=== PATIENT | female | born 2000 | race Caucasian/White ===

== ENCOUNTER → 2019-09-02 14:22 | Outpatient (BNVA) | payer BC, SELFPAY | PROVIDERS: Family Provider Nurse Practitioner Family; PCP Nurse Practitioner Family; Visit Provider Internal Medicine Rheumatology | DX: M79.10 Myalgia, unspecified site (principal); Z79.899 Other long term (current) drug therapy; R53.83 Other fatigue; R80.9 Proteinuria, unspecified; N92.1 Excessive and frequent menstruation with irregular cycle; E55.9 Vitamin D deficiency, unspecified; R76.8 Other specified abnormal immunological findings in serum | CPT/HCPCS: 80076; 81001; 82306; 82565; 82570; 84156; 84439; 84443; 85025; 85651; 86140; 86160; 99204 ==

== ENCOUNTER → 2019-09-07 11:17 | Outpatient (BNVA) | payer BC, SELFPAY | PROVIDERS: Family Provider Nurse Practitioner Family; PCP Nurse Practitioner Family; Visit Provider Registered Nurse | DX: J02.9 Acute pharyngitis, unspecified (principal); Z20.828 Contact with and (suspected) exposure to other viral communicable diseases; R53.83 Other fatigue | CPT/HCPCS: 87635; 87880 ==

== ENCOUNTER → 2019-09-23 09:05 | Outpatient (BNVA) | payer BC, SELFPAY | PROVIDERS: Family Provider Nurse Practitioner Family; PCP Nurse Practitioner Family; Visit Provider Internal Medicine Rheumatology | DX: R76.8 Other specified abnormal immunological findings in serum (principal); R53.82 Chronic fatigue, unspecified; M79.7 Fibromyalgia; G47.9 Sleep disorder, unspecified; N92.1 Excessive and frequent menstruation with irregular cycle; E55.9 Vitamin D deficiency, unspecified | CPT/HCPCS: 99214 ==

== ENCOUNTER → 2020-01-22 15:08 | Outpatient (BNVA) | payer BC, SELFPAY | PROVIDERS: Family Provider Nurse Practitioner Family; PCP Nurse Practitioner Family; Visit Provider Obstetrics & Gynecology | DX: R10.2 Pelvic and perineal pain (principal); G89.29 Other chronic pain; N93.9 Abnormal uterine and vaginal bleeding, unspecified | CPT/HCPCS: 83001; 84146; 84443; 85025 ==

== ENCOUNTER → 2020-01-29 16:14 | Outpatient (BNVA) | payer BC, SELFPAY | PROVIDERS: Family Provider Nurse Practitioner Family; PCP Nurse Practitioner Family; Visit Provider Obstetrics & Gynecology | DX: N93.9 Abnormal uterine and vaginal bleeding, unspecified (principal); N83.8 Other noninflammatory disorders of ovary, fallopian tube and broad ligament | CPT/HCPCS: 76830 ==

== ENCOUNTER → 2021-09-06 10:12 | Outpatient (BNVA) | payer BC, SELFPAY | PROVIDERS: Family Provider Nurse Practitioner Family; PCP Registered Nurse; Visit Provider Registered Nurse | DX: R51.9 Headache, unspecified (principal) | CPT/HCPCS: 80053; 82607; 84443; 85025 ==

== ENCOUNTER → 2022-05-23 09:40 | Outpatient (BNVA) | payer BC, SELFPAY | PROVIDERS: Family Provider Nurse Practitioner Family; PCP Registered Nurse; Visit Provider Obstetrics & Gynecology | DX: Z32.00 Encounter for pregnancy test, result unknown (principal) | CPT/HCPCS: 84702 ==

== ENCOUNTER 2022-05-25 09:41 | Emergency (ER) | payer BC, SELFPAY ==
[2022-05-25 09:47] VITALS: BP 106/72; PULSE 75; RESP 16; TEMP 36.6; O2SAT 99; BMI 27.0
[2022-05-25 10:26] LABS: Basophils # 0.1 10^3/uL (0.0-0.1); Basophils % 0.8 %; Eosinophils # 0.3 10^3/uL (0.0-0.8); Eosinophils % 3.4 %; Hematocrit 40.5 % (37.0-47.0); Hemoglobin 13.1 g/dL (11.5-15.3); Lymphocytes # 1.5 10^3/uL (0.8-4.8); Mean Corpuscular HGB Conc 32.3 g/dL (30.0-36.0); Mean Corpuscular Hemoglobin 27.9 pg (28.0-34.0); Mean Corpuscular Volume 86.4 fl (81-99); Mean Platelet Volume 11.5 fL (7.4-10.4); Monocytes # 0.7 10^3/uL (0.2-0.9); Monocytes % 8.3 %; Neutrophils # 5.45 10^3/uL (1.8-7.7); Nucleated Red Blood Cells % 0 %; Platelet Count 234 10^3/cmm (130-400); Red Blood Count 4.69 10^6/uL (4.1-5.3); Red Cell Distribution Width 13.2 % (12.1-15.1)
[2022-05-25] MEDS: ondansetron 2 mg/ML SDV 2 mL 4 MG IVP (10:35)
[2022-05-25] MEDS: sodium chloride 0.9% 1,000 ML 999 ML IV ×2 (10:35→10:43)
[2022-05-25 10:42] LABS: Alanine Aminotransferase 13 U/L (0-33); Albumin Level 4.5 g/dL (3.5-5.2); Alkaline Phosphatase 69 U/L (35-105); Anion Gap 15.3 (5-19); Aspartate Amino Transferase 16 U/L (0-32); Blood Urea Nitrogen 10 mg/dL (6-20); Calcium 8.9 mg/dL (8.5-10.5); Carbon Dioxide 24 mmol/L (22-29); Chloride 102 mmol/L (98-107); Globulin 2.3 g/dL (1.3-4.6); Glomerular Filtration Rate 154.3 mL/min (90-130); Glucose 101 mg/dL (65-115); Lipase 29 U/L (13-60); Magnesium 2.1 mg/dL (1.7-2.3); Osmolality Calculated 283 mOsm/kg (285-295); Potassium 4.3 mmol/L (3.5-5.1); Sodium 137 mmol/L (136-145); Total Bilirubin 0.3 mg/dL (0.15-1.2); Total Protein 6.8 g/dL (6.6-8.7)
[2022-05-25 10:47] VITALS: BP 127/72; PULSE 77; RESP 17; O2SAT 100
[2022-05-25 11:01] VITALS: BP 105/66; PULSE 81; RESP 17; O2SAT 99
--- NOTE | 2022-05-25 11:05 | W.ED.NAVMDI ---
HPI - Nausea/Vomiting/Diarrhea General: Chief complaint: Nausea/Vomiting/Diarrhea Stated complaint: n/v Time Seen by Provider: 05/25/22 09:57 Source: patient Mode of arrival: ambulatory History of Present Illness: 21-year-old female presents emergency room complaining of dizziness lightheadedness nausea and vomiting. She had bilious vomit 8-9 times this morning no hematochezia melena hematemesis or coffee-ground emesis. Her gait has been normal so no vision changes. No dysuria urgency or frequency. She is feeling somewhat better now than she was earlier. She is responded well to the antiemetics given when she first arrived here. She not previously had episodes like this denies fever. MD elicited complaint: nausea and vomiting Onset (ago): hour(s) Description of vomiting: watery and bilious Associated nausea: Yes Associated abdominal pain: Yes Location of pain: Epigastric and RUQ Pain consistency: intermittent Severity: moderate Quality: cramping Exacerbating factors: none Relieving factors: none Associated symtoms: Reports bloating, anorexia and nausea; Denies altered mental status, anxiety, change in vision, chest pain, cough, diaphoresis, decreased urine output, dizziness, dysuria, epistaxis, fatigue, fecal incontinence, fevers/chills, headache(s), malaise, myalgias, numbness, palpitations, rash, short of breath, syncope, tenesmus, tinnitus or weakness Review of Systems Const: Denies: fever(s), chills, fatigue, malaise or diaphoresis Eyes: Denies: change in vision ENMT: Denies: tinnitus or epistaxis Card: Denies: chest pain, palpitations or syncope Resp: Denies: dyspnea, productive cough or non-productive cough GI: Reports: nausea and bloating; Denies: abdominal pain or fecal incontinence : Denies: flank pain, difficulty voiding or dysuria Skin/Breast: Denies: rash or pruritus Neuro: Denies: headache(s) or dizziness Psych: Denies: anxiety PFSH ED PFSH: Medical History (Updated 05/25/22 @ 12:31 by Daniel Abreu DO) Fatigue Fibromyalgia Immunization counseling Myalgia Positive KWAME (antinuclear antibody) Primary sleep disturbance Proteinuria Surgical History No pertinent past surgical history Family History Father CAD (coronary artery disease) Hyperlipidemia Hypertension Family/Other Diabetes maternal great aunt and great uncles Denies family history of Rheumatoid arthritis Colon cancer Ovarian cancer Lupus Breast cancer Anesthesia complication Uterine cancer Thyroid condition Stroke Social History Smoking and tobacco status: never smoked Alcohol intake: never Adopted: No Caregiver/support person: No Lives independently: No Household members: significant other service: No Current occupational status: employed Sexually active: Yes Current gender identity: Female Female Reproductive History: Date of last menstrual period: 04/10/22 Physical Exam Const: EXAM LIMITATIONS: no altered mental status GENERAL APPEARANCE: cooperative and comfortable ORIENTATION/CONSCIOUSNESS: Yes awake, Yes oriented to person, Yes oriented to place and Yes oriented to time HENMT: COMMON NORMALS: normocephalic, atraumatic, hearing grossly normal bilaterally, external ears normal, EAC's normal, TM's normal bilaterally, Normal nasal mucous membranes and turbinates present, moist oral mucous membranes and oropharynx normal HEAD & SCALP: normocephalic and atraumatic NOSE: Normal nasal mucous membranes and turbinates present EXTERNAL EAR: Yes external ears normal EXTERNAL AUDITORY CANAL: EAC's normal TYMPANIC MEMBRANE: TM's normal bilaterally Eye: COMMON NORMALS: Equal, round and reactive pupils present, EOMs intact bilaterally, conjunctivae normal and no scleral icterus CONJUNCTIVA: Yes conjunctivae normal PUPIL: Yes Equal, round and reactive pupils present Neck/C-Spine: COMMON NORMALS: full ROM, no lymphadenopathy, supple and no JVD Lymph: LYMPHATIC: no lymphadenopathy noted and no lymphedema noted Resp: COMMON NORMALS: normal respiratory effort, No retractions, No use of accessory muscles and clear to auscultation bilaterally AUSCULTATION: clear to auscultation bilaterally Cardio: COMMON NORMALS: no JVD, regular rate, regular rhythm and No murmurs present (Cardio) RATE: regular rate RHYTHM: regular rhythm GI: COMMON NORMALS: Soft to palpation and No hepatosplenomegaly present AUSCULTATION: Yes normoactive bowel sounds PALPATION: Yes Soft to palpation, No Tenderness to palpation present (GI), No Guarding due to palpation present (GI) and Yes No hepatosplenomegaly present Extremity: COMMON NORMALS: normal to inspection, capillary refill normal, no clubbing, cyanosis or edema, no calf tenderness and no pedal edema Neuro: SENSORIUM/ORIENTATION: Yes oriented to person, Yes oriented to place and Yes oriented to time Skin: COMMON NORMALS: no rashes or lesions noted GENERAL SKIN EXAM: no rashes or lesions noted Course Vital Signs: Vital signs: Vital Signs Temperature 97.8 F 05/25/22 09:47 Pulse Rate 81 05/25/22 12:51 Respiratory Rate 17 05/25/22 12:51 Blood Pressure 105/66 05/25/22 12:51 Pulse Oximetry 99 05/25/22 12:51 Oxygen Delivery Me thod 05/25/22 11:01 MDM - Nausea/Vomiting/Diarrhea Medical Decision Making Migraine improved with fluids and medications given. She has several medications at home she uses for rescue we will add promethazine to use as needed to help with the nausea vomiting follow-up with her primary care doctor. No evidence of trauma or infection. No evidence of specific focal neurologic deficit at the time she was seen. Medical Records I reviewed the patient's medical records. Lab Data I reviewed the patient's lab results. 05/25/22 10:12 05/25/22 10:12 Laboratory Results WBC 8.0 10^3/uL (4.0-10.0) 05/25/22 10:12 RBC 4.69 10^6/uL (4.1-5.3) 05/25/22 10:12 Hgb 13.1 g/dL (11.5-15.3) 05/25/22 10:12 Hct 40.5 % (37.0-47.0) 05/25/22 10:12 MCV 86.4 fl (81-99) 05/25/22 10:12 MCH 27.9 pg (28.0-34.0) L 05/25/22 10:12 MCHC 32.3 g/dL (30.0-36.0) 05/25/22 10:12 RDW 13.2 % (12.1-15.1) 05/25/22 10:12 Plt Count 234 10^3/cmm (130-400) 05/25/22 10:12 MPV 11.5 fL (7.4-10.4) H 05/25/22 10:12 Neut % (Auto) 68.0 % 05/25/22 10:12 Lymph % (Auto) 19.0 % 05/25/22 10:12 [place] % (Auto) 8.3 % 05/25/22 10:12 Eos % (Auto) 3.4 % 05/25/22 10:12 Baso % (Auto) 0.8 % 05/25/22 10:12 Neut # (Auto) 5.45 10^3/uL (1.8-7.7) 05/25/22 10:12 Lymph # (Auto) 1.5 10^3/uL (0.8-4.8) 05/25/22 10:12 [place] # (Auto) 0.7 10^3/uL (0.2-0.9) 05/25/22 10:12 Eos # (Auto) 0.3 10^3/uL (0.0-0.8) 05/25/22 10:12 Baso # (Auto) 0.1 10^3/uL (0.0-0.1) 05/25/22 10:12 Nucleated RBC % (auto) 0 % 05/25/22 10:12 Nucleated RBCs # 0.0 /100WBC 05/25/22 10:12 Sodium 137 mmol/L (136-145) 05/25/22 10:12 Potassium 4.3 mmol/L (3.5-5.1) 05/25/22 10:12 Chloride 102 mmol/L (98-107) 05/25/22 10:12 Carbon Dioxide 24 mmol/L (22-29) 05/25/22 10:12 Anion Gap 15.3 (5-19) 05/25/22 10:12 BUN 10 mg/dL (6-20) 05/25/22 10:12 Creatinine 0.5 mg/dL (0.5-0.9) 05/25/22 10:12 GFR Calculation 154.3 mL/min (90-130) H 05/25/22 10:12 Glucose 101 mg/dL (65-115) 05/25/22 10:12 Calculated Osmolality 283 mOsm/kg (285-295) L 05/25/22 10:12 Calcium 8.9 mg/dL (8.5-10.5) 05/25/22 10:12 Magnesium 2.1 mg/dL (1.7-2.3) 05/25/22 10:12 Total Bilirubin 0.3 mg/dL (0.15-1.2) 05/25/22 10:12 AST 16 U/L (0-32) 05/25/22 10:12 ALT 13 U/L (0-33) 05/25/22 10:12 Alkaline Phosphatase 69 U/L (35-105) 05/25/22 10:12 Total Protein 6.8 g/dL (6.6-8.7) 05/25/22 10:12 Albumin 4.5 g/dL (3.5-5.2) 05/25/22 10:12 Globulin 2.3 g/dL (1.3-4.6) 05/25/22 10:12 Lipase 29 U/L (13-60) 05/25/22 10:12 Urine Color Yellow (Yellow) 05/25/22 11:00 Urine Appearance Sl hazy (CLEAR) A 05/25/22 11:00 Urine pH 6 (5-7) 05/25/22 11:00 Ur Specific [place] 1.020 (1.005-1.030) 05/25/22 11:00 Urine Protein Neg (Negative) 05/25/22 11:00 Urine Glucose (UA) Norm (Normal) 05/25/22 11:00 Urine Ketones Negative (Negative) 05/25/22 11:00 Urine Blood Neg (Negative) 05/25/22 11:00 Urine Nitrate Negative (Negative) 05/25/22 11:00 Urine Bilirubin Neg (Negative) 05/25/22 11:00 Urine Urobilinogen Norm mg/dL (Negative) 05/25/22 11:00 Ur Leukocyte Esterase 1+ (Negative) H 05/25/22 11:00 Urine RBC 0-4 /hpf (0-2) H 05/25/22 11:00 Urine WBC 5-10 /hpf (0-5) H 05/25/22 11:00 Ur Squamous Epith Cells 10-15 /hpf (0-5) H 05/25/22 11:00 Amorphous Sediment Not Reportable 05/25/22 11:00 Urine Bacteria 2+ /hpf (NONE) H 05/25/22 11:00 Urine Mucus Trace /hpf 05/25/22 11:00 Discharge Plan Discharge Patient Disposition: Home Clinical Impression: Gastroenteritis Condition: Stable Prescriptions: New promethazine 25 mg tablet 25 mg PO Q6H PRN (Reason: nausea and vomiting) Qty: 20 0RF No Action hydroxyzine HCl 25 mg tablet 25 mg PO DAILY 30 Days Qty: 30 0RF Rx Instructions: pt lost previous script in travel Discharge Orders: Discharge ED (Routine); Ordered 05/25/22 Ordered By: Daniel Abreu Discharge Diet: Usual diet Discharge Activity: Increase activity as tolerated Patient Instructions: Opioid Safety, Pain Management Activity Restrictions/Additional Instructions: You were seen today for an episode of lightheadedness and dizziness with nausea vomiting and diarrhea. Laboratory tests were unremarkable. We will discharge you home with promethazine to use as needed for nausea vomiting recommend liquid diet for the next 48 hours and advance as tolerated if symptoms worsen return to the emergency room Coding Level of Care Code ED [employer] Kil[employer]er for Shad Darling
[2022-05-25 11:57] LABS: Add Urine Microscopic? YES; Bilirubin Urine Neg (Negative); Blood Urine Neg (Negative); Glucose Urine UA Norm (Normal); Ketones Urine Negative (Negative); Leukocyte Esterase Urine 1+ (Negative); Nitrate Urine Negative (Negative); Protein Urine Neg (Negative); Urine Appearance SL Hazy (CLEAR); Urine Color Yellow (Yellow); Urobilinogen Urine Norm (Negative); pH Urine 6 (5-7)
[2022-05-25 11:58] LABS: RBC Urine 0-4 /hpf (0-2)
[2022-05-25 12:00] LABS: Add Urine Culture? No; Bacteria Urine 2+ /hpf; Mucus Urine TRACE /hpf
[2022-05-25 12:51] VITALS: BP 105/66; PULSE 81; RESP 17; O2SAT 99
== END 2022-05-25 12:53 | disposition home or self-care (01) ==
PROVIDERS: Emergency Provider Family Medicine
DX: K52.9 Noninfective gastroenteritis and colitis, unspecified (principal)
CPT/HCPCS: 36415; 80053; 81001; 83690; 83735; 85025; 96361; 96374; 99284; J2405; J7030

== ENCOUNTER → 2022-06-22 11:00 | Outpatient (BNVA) | payer BC, SELFPAY | PROVIDERS: Visit Provider Nurse Practitioner Women's Health | DX: Z01.419 Encounter for gynecological examination (general) (routine) without abnormal findings (principal) | CPT/HCPCS: 87624 ==

== ENCOUNTER → 2023-04-04 10:53 | Outpatient (BNVA) | payer BC, SELFPAY | PROVIDERS: PCP Registered Nurse; Visit Provider Registered Nurse | DX: J02.9 Acute pharyngitis, unspecified (principal) | CPT/HCPCS: 87071; 87880 ==

== ENCOUNTER 2023-11-01 16:08 | Emergency (ER) | payer SELFPAY ==
[2023-11-01 16:10] VITALS: BP 124/78; PULSE 94; RESP 14; TEMP 36.7; O2SAT 98
--- NOTE | 2023-11-01 16:42 | ED_ITS ---
Documented by User: EVELIN Vargas 11/01/23 16:48 HPI - Abdominal Pain 2 General: Chief Complaint: Abdominal Pain Stated Complaint: back and abd pain Time Seen by Provider: 11/01/23 16:09 Source: patient Mode of arrival: ambulatory Limitations: no limitations History of Present Illness: Patient is a nice 22-year-old female presents to ED today with a complaint of lower back pain, abdominal pain, urinary urgency, frequency, and hesitancy. She states she was seen at [facility] on 10/21 and diagnosed with a UTI and started on Ciprofloxacin. Patient states she finished her antibiotics but symptoms did not improve. She returned to the clinic and they told her that her culture result was negative. Patient is not having any vaginal discharge, vaginal odor, or itching. She does report recent STD testing through the health department that was negative. She is not having any dysuria or flank pain. She does have a history of PCOS. No fevers or vomiting. MD elicited complaint: abdominal pain and other (low back pain, urinary symptoms) Pertinent past history: none Onset (ago): day(s) Pain Consistency: constant Location: Suprapubic, Pelvis and Other (back) Severity: moderate Radiation: none Migration to: no migration Exacerbating factors: nothing Relieving factors: nothing Associated Symptoms: Reports nausea; Denies change in bowel habits, chills, diarrhea, dysuria, fever(s), hematuria and vomiting Review of Systems 2 Const: Denies: fever(s), chills, body aches, fatigue or malaise Card: Denies: chest pain Resp: Denies: dyspnea GI: Reports: abdominal pain and nausea; Denies: vomiting, diarrhea or change in bowel habits : Reports: urinary frequency, urinary urgency and urinary hesitancy; Denies: flank pain, dysuria, hematuria, vaginal odor, vaginal bleeding or vaginal discharge Musc: Reports: back pain; Denies: neck pain, extremity pain, extremity swelling, joint pain or joint swelling Skin/Breast: Denies: rash Neuro: Denies: headache(s), numbness in extremities, weakness in extremities or sensory changes PFSH ED 2 PFSH: Medical History (Updated 11/01/23 @ 17:49 by EVELIN Encinas) Primary sleep disturbance Fibromyalgia Myalgia Fatigue Positive KWAME (antinuclear antibody) Proteinuria Immunization counseling Surgical History No pertinent past surgical history Family History Father CAD (coronary artery disease) Hyperlipidemia Hypertension Family/Other Diabetes maternal great aunt and great uncles Denies family history of Rheumatoid arthritis Colon cancer Ovarian cancer Lupus Breast cancer Anesthesia complication Uterine cancer Thyroid disease Stroke Social History Smoking and tobacco/nicotine status: never used tobacco/nicotine Alcohol intake: never Substance/Drug Use: never Adopted: No Caregiver/support person: No Lives independently: No Household members: significant other service: No Current occupational status: employed Sexually active: Yes Do you think of yourself as: Straight/Heterosexual Current gender identity: Female Physical Exam 2 Const: COMMON NORMALS: no acute distress, average body habitus, patient oriented x3, no limitations, healthy appearing, alert and well nourished G ENERAL APPEARANCE: cooperative ORIENTATION/CONSCIOUSNESS: Yes awake, Yes oriented to person, Yes oriented to place and Yes oriented to time Eye: COMMON NORMALS: no scleral icterus Resp: COMMON NORMALS: normal respiratory effort and clear to auscultation bilaterally AUSCULTATION: clear to auscultation bilaterally Cardio: COMMON NORMALS: regular rate and regular rhythm RATE: regular rate RHYTHM: regular rhythm GI: COMMON NORMALS: Normal to inspection, nondistended, normoactive bowel sounds present, Soft to palpation, No hepatosplenomegaly present and no masses INSPECTION: Yes normal to inspection PALPATION: Yes Soft to palpation, Yes Tenderness to palpation present (GI) (throughout lower abdomen and pelvis), No Guarding due to palpation present (GI), No Rigid due to palpation and Yes No hepatosplenomegaly present : COMMON NORMALS: Yes no CVA tenderness BLADDER/KIDNEY EXAM: Yes no CVA tenderness Back/Pelvis: COMMON NORMALS: no CVA tenderness, thoracic and lumbar spine normal to inspection and no thoracic nor lumbar tenderness LUMBAR SPINE/LOWER BACK: Yes normal to inspection, Yes lumbar ROM normal, No lumbar spinal tenderness, Yes paraspinal muscle tenderness and Yes straight leg raise negative bilaterally Extremity: GENERAL: Yes normal exam except as noted Neuro: COMMON NORMALS: patient oriented x3 SENSORIUM/ORIENTATION: Yes alert, Yes oriented to person, Yes oriented to place and Yes oriented to time Skin: COMMON NORMALS: no rashes or lesions noted GENERAL SKIN EXAM: no rashes or lesions noted Course 2 Vital Signs: Vital signs: Vital Signs Temperature 98.0 F 11/01/23 16:10 Pulse Rate 94 11/01/23 16:10 Respiratory Rate 14 11/01/23 16:10 Blood Pressure 124/78 11/01/23 16:10 Pulse Oximetry 98 11/01/23 16:10 Oxygen Delivery Me thod Room Air 11/01/23 16:10 MDM - Abdominal Pain Lab Data 11/01/23 16:37 11/01/23 16:37 Labs/Radiology: Radiology Impressions Abdomen/Pelvis CT 11/01/23 16:59 IMPRESSION: 1. No acute findings. 2. Mild pelvic ascites, most likely physiologic. Laboratory Results WBC 7.14 10^3/uL (3.29-11.43) 11/01/23 16:37 RBC 4.59 10^6/uL (3.85-5.65) 11/01/23 16:37 Hgb 13.80 g/dL (11.27-16.99) 11/01/23 16:37 Hct 40.2 % (36-47) 11/01/23 16:37 MCV 87.6 fl (85-98) 11/01/23 16:37 MCH 30.1 pg (27-33) 11/01/23 16:37 MCHC 34.3 g/dL (30-55) 11/01/23 16:37 RDW 13.0 % (12.1-15.1) 11/01/23 16:37 Plt Count 219 10^3/cmm (157-399) 11/01/23 16:37 MPV 11.2 fL (7.4-10.4) H 11/01/23 16:37 Neut % (Auto) 59.2 % 11/01/23 16:37 Lymph % (Auto) 28.6 % 11/01/23 16:37 [place] % (Auto) 7.6 % 11/01/23 16:37 Eos % (Auto) 3.2 % 11/01/23 16:37 Baso % (Auto) 1.1 % 11/01/23 16:37 Neut # (Auto) 4.23 10^3/uL (1.8-7.7) 11/01/23 16:37 Lymph # (Auto) 2.0 10^3/uL (0.8-4.8) 11/01/23 16:37 [place] # (Auto) 0.5 10^3/uL (0.2-0.9) 11/01/23 16:37 Eos # (Auto) 0.2 10^3/uL (0.0-0.8) 11/01/23 16:37 Baso # (Auto) 0.1 10^3/uL (0.0-0.1) 11/01/23 16:37 Nucleated RBC % (auto) 0 % 11/01/23 16:37 Nucleated RBCs # 0.0 /100WBC 11/01/23 16:37 Sodium 139 mmol/L (136-145) 11/01/23 16:37 Potassium 3.7 mmol/L (3.5-5.1) 11/01/23 16:37 Chloride 99 mmol/L (98-107) 11/01/23 16:37 Carbon Dioxide 27 mmol/L (22-29) 11/01/23 16:37 Anion Gap 16.7 (5-19) 11/01/23 16:37 BUN 8 mg/dL (6-20) 11/01/23 16:37 Creatinine 0.5 mg/dL (0.5-0.9) 11/01/23 16:37 GFR Calculation 152.9 mL/min (90-130) H 11/01/23 16:37 Glucose 92 mg/dL (65-115) 11/01/23 16:37 Calculated Osmolality 286 mOsm/kg (285-295) 11/01/23 16:37 Calcium 9.3 mg/dL (8.5-10.5) 11/01/23 16:37 Total Bilirubin 0.5 mg/dL (0.15-1.2) 11/01/23 16:37 AST 16 U/L (0-32) 11/01/23 16:37 ALT 14 U/L (0-33) 11/01/23 16:37 Alkaline Phosphatase 55 U/L (35-105) 11/01/23 16:37 Total Protein 7.3 g/dL (6.6-8.7) 11/01/23 16:37 Albumin 4.7 g/dL (3.5-5.2) 11/01/23 16:37 Globulin 2.6 g/dL (1.3-4.6) 11/01/23 16:37 Lipase 24 U/L (13-60) 11/01/23 16:37 HCG, Qual Negative (Negative) 11/01/23 16:37 Urine Color Yellow (Yellow) 11/01/23 16:43 Urine Appearance Clear (CLEAR) 11/01/23 16:43 Urine pH 6 (5-7) 11/01/23 16:43 Ur Specific [place] 1.010 (1.005-1.030) 11/01/23 16:43 Urine Protein Neg (Negative) 11/01/23 16:43 Urine Glucose (UA) Norm (Normal) 11/01/23 16:43 Urine Ketones Negative (Negative) 11/01/23 16:43 Urine Blood Neg (Negative) 11/01/23 16:43 Urine Nitrate Negative (Negative) 11/01/23 16:43 Urine Bilirubin Neg (Negative) 11/01/23 16:43 Urine Urobilinogen Norm mg/dL (Negative) 11/01/23 16:43 Ur Leukocyte Esterase Negative (Negative) 11/01/23 16:43 Discharge Plan Discharge Patient Disposition: Home Clinical Impression: Ovarian cyst rupture Condition: Stable Prescriptions: No Action prednisone 20 mg tablet 20 mg PO BID 3 Days Qty: 6 0RF azithromycin 250 mg tablet See Rx Instructions PO .COMPLEX Qty: 6 0RF Rx Instructions: take 500 mg today (day 1), then 250 mg for 4 days (days 2-5) PO Discharge Orders: Discharge ED (Routine); Ordered 11/01/23 Ordered By: Armin Mayorga Discharge Diet: Usual diet Discharge Activity: Increase activity as tolerated Patient Instructions: Ruptured Ovarian Cyst (ED) Activity Restrictions/Additional Instructions: Please follow-up with primary care early next week as discussed. Plenty of fluids. Return with any new or concerning symptoms you may have. Sign Out Sign Out Data: Patient Sign Out occurred on 11/01/23 at 17:49. Patient's care was discussed, and care was transferred from EVELIN Vargas to EVELIN Encinas. Coding Level of Care Code ED Sustainable Design Coordinator for [employer] Documented by User: EVELIN Encinas 11/01/23 21:01 HPI - Abdominal Pain 2 General: Chief Complaint: Abdominal Pain Stated Complaint: back and abd pain Time Seen by Provider: 11/01/23 16:09 PFS ED 2 PFSH: Medical History (Updated 11/01/23 @ 17:49 by EVELIN Encinas) Primary sleep disturbance Fibromyalgia Myalgia Fatigue Positive KWAME (antinuclear antibody) Proteinuria Immunization counseling Surgical History No pertinent past surgical history Family History Father CAD (coronary artery disease) Hyperlipidemia Hypertension Family/Other Diabetes maternal great aunt and great uncles Denies family history of Rheumatoid arthritis Colon cancer Ovarian cancer Lupus Breast cancer Anesthesia complication Uterine cancer Thyroid disease Stroke Social History Smoking and tobacco/nicotine status: never used tobacco/nicotine Alcohol intake: never Substance/Drug Use: never Adopted: No Caregiver/support person: No Lives independently: No Household members: significant other service: No Current occupational status: employed Sexually active: Yes Do you think of yourself as: Straight/Heterosexual Current gender identity: Female Course 2 Vital Signs: Vital signs: Vital Signs Temperature 98.0 F 11/01/23 16:10 Pulse Rate 94 11/01/23 16:10 Respiratory Rate 14 11/01/23 16:10 Blood Pressure 124/78 11/01/23 16:10 Pulse Oximetry 98 11/01/23 16:10 Oxygen Delivery Nv thod Room Air 11/01/23 16:10 MDM - Abdominal Pain Medical Decision Making Care of patient transferred to ne by Aziza Santana. Her labs were unremarkable. CT obtained did show some physiologic ascites, this may be secondary to a ruptured ovarian cyst. If she continues to have hesitancy with urination, she is instructed to get with primary care for urological referral for functional neurological testing and potential cystoscopy. She is further instructed to follow-up with her primary care provider for further evaluation and return with any new or worsening symptoms. Her vitals have been normal throughout the ED course and I do not suspect an acute abdominal process at this time. Lab Data 11/01/23 16:37 11/01/23 16:37 Labs/Radiology: Radiology Impressions Abdomen/Pelvis CT 11/01/23 16:59 IMPRESSION: 1. No acute findings. 2. Mild pelvic ascites, most likely physiologic. Laboratory Results WBC 7.14 10^3/uL (3.29-11.43) 11/01/23 16:37 RBC 4.59 10^6/uL (3.85-5.65) 11/01/23 16:37 Hgb 13.80 g/dL (11.27-16.99) 11/01/23 16:37 Hct 40.2 % (36-47) 11/01/23 16:37 MCV 87.6 fl (85-98) 11/01/23 16:37 MCH 30.1 pg (27-33) 11/01/23 16:37 MCHC 34.3 g/dL (30-55) 11/01/23 16:37 RDW 13.0 % (12.1-15.1) 11/01/23 16:37 Plt Count 219 10^3/cmm (157-399) 11/01/23 16:37 MPV 11.2 fL (7.4-10.4) H 11/01/23 16:37 Neut % (Auto) 59.2 % 11/01/23 16:37 Lymph % (Auto) 28.6 % 11/01/23 16:37 [place] % (Auto) 7.6 % 11/01/23 16:37 Eos % (Auto) 3.2 % 11/01/23 16:37 Baso % (Auto) 1.1 % 11/01/23 16:37 Neut # (Auto) 4.23 10^3/uL (1.8-7.7) 11/01/23 16:37 Lymph # (Auto) 2.0 10^3/uL (0.8-4.8) 11/01/23 16:37 [place] # (Auto) 0.5 10^3/uL (0.2-0.9) 11/01/23 16:37 Eos # (Auto) 0.2 10^3/uL (0.0-0.8) 11/01/23 16:37 Baso # (Auto) 0.1 10^3/uL (0.0-0.1) 11/01/23 16:37 Nucleated RBC % (auto) 0 % 11/01/23 16:37 Nucleated RBCs # 0.0 /100WBC 11/01/23 16:37 Sodium 139 mmol/L (136-145) 11/01/23 16:37 Potassium 3.7 mmol/L (3.5-5.1) 11/01/23 16:37 Chloride 99 mmol/L (98-107) 11/01/23 16:37 Carbon Dioxide 27 mmol/L (22-29) 11/01/23 16:37 Anion Gap 16.7 (5-19) 11/01/23 16:37 BUN 8 mg/dL (6-20) 11/01/23 16:37 Creatinine 0.5 mg/dL (0.5-0.9) 11/01/23 16:37 GFR Calculation 152.9 mL/min (90-130) H 11/01/23 16:37 Glucose 92 mg/dL (65-115) 11/01/23 16:37 Calculated Osmolality 286 mOsm/kg (285-295) 11/01/23 16:37 Calcium 9.3 mg/dL (8.5-10.5) 11/01/23 16:37 Total Bilirubin 0.5 mg/dL (0.15-1.2) 11/01/23 16:37 AST 16 U/L (0-32) 11/01/23 16:37 ALT 14 U/L (0-33) 11/01/23 16:37 Alkaline Phosphatase 55 U/L (35-105) 11/01/23 16:37 Total Protein 7.3 g/dL (6.6-8.7) 11/01/23 16:37 Albumin 4.7 g/dL (3.5-5.2) 11/01/23 16:37 Globulin 2.6 g/dL (1.3-4.6) 11/01/23 16:37 Lipase 24 U/L (13-60) 11/01/23 16:37 HCG, Qual Negative (Negative) 11/01/23 16:37 Urine Color Yellow (Yellow) 11/01/23 16:43 Urine Appearance Clear (CLEAR) 11/01/23 16:43 Urine pH 6 (5-7) 11/01/23 16:43 Ur Specific [place] 1.010 (1.005-1.030) 11/01/23 16:43 Urine Protein Neg (Negative) 11/01/23 16:43 Urine Glucose (UA) Norm (Normal) 11/01/23 16:43 Urine Ketones Negative (Negative) 11/01/23 16:43 Urine Blood Neg (Negative) 11/01/23 16:43 Urine Nitrate Negative (Negative) 11/01/23 16:43 Urine Bilirubin Neg (Negative) 11/01/23 16:43 Urine Urobilinogen Norm mg/dL (Negative) 11/01/23 16:43 Ur Leukocyte Esterase Negative (Negative) 11/01/23 16:43 All radiology interpretation(s) finalized by discharge Discharge Plan Discharge Patient Disposition: Home Clinical Impression: Ovarian cyst rupture Condition: Stable Prescriptions: No Action prednisone 20 mg tablet 20 mg PO BID 3 Days Qty: 6 0RF azithromycin 250 mg tablet See Rx Instructions PO .COMPLEX Qty: 6 0RF Rx Instructions: take 500 mg today (day 1), then 250 mg for 4 days (days 2-5) PO Discharge Orders: Discharge ED (Routine); Ordered 11/01/23 Ordered By: Armin Mayorga Discharge Diet: Usual diet Discharge Activity: Increase activity as tolerated Patient Instructions: Ruptured Ovarian Cyst (ED) Activity Restrictions/Additional Instructions: Please follow-up with primary care early next week as discussed. Plenty of fluids. Return with any new or concerning symptoms you may have. Sign Out Sign Out Data: Patient Sign Out occurred on 11/01/23 at 17:49. Patient's care was discussed, and care was transferred from EVELIN Vargas to EVELIN Encinas. Coding Level of Care Code ED Sustainable Design Coordinator for Shad Darling
[2023-11-01 16:44] LABS: Basophils # 0.1 10^3/uL (0.0-0.1); Basophils % 1.1 %; Eosinophils # 0.2 10^3/uL (0.0-0.8); Eosinophils % 3.2 %; Hematocrit 40.2 % (36-47); Lymphocytes % 28.6 %; Mean Corpuscular HGB Conc 34.3 g/dL (30-55); Mean Corpuscular Hemoglobin 30.1 pg (27-33); Mean Corpuscular Volume 87.6 fl (85-98); Mean Platelet Volume 11.2 fL (7.4-10.4); Monocytes # 0.5 10^3/uL (0.2-0.9); Monocytes % 7.6 %; Neutrophils # 4.23 10^3/uL (1.8-7.7); Neutrophils % 59.2 %; Nucleated Red Blood Cells % 0 %; Platelet Count 219 10^3/cmm (157-399); Red Blood Count 4.59 10^6/uL (3.85-5.65); White Blood Count 7.14 10^3/uL (3.29-11.43)
[2023-11-01 16:51] LABS: Add Urine Microscopic? NO; Charge for UA Resulting for Rev
[2023-11-01 16:57] LABS: Bilirubin Urine Neg (Negative); Blood Urine Neg (Negative); Glucose Urine UA Norm (Normal); Ketones Urine Negative (Negative); Leukocyte Esterase Urine Negative (Negative); Nitrate Urine Negative (Negative); Protein Urine Neg (Negative); Urine Appearance Clear (CLEAR); Urine Color Yellow (Yellow); Urobilinogen Urine Norm (Negative); pH Urine 6 (5-7)
[2023-11-01 16:57] LABS: HCG, Serum Qual Negative (Negative)
--- NOTE | 2023-11-01 16:59 | CTR_ITS ---
PROCEDURE INFORMATION: Exam: CT Abdomen And Pelvis With Contrast Exam date and time: 11/01/2023 5:07 PM Age: 22 years old Clinical indication: Abdominal pain; Localized; Lower; Additional info: Lower abdomen/pelvis pain, low back, urinary symptoms TECHNIQUE: Imaging protocol: Computed tomography of the abdomen and pelvis with contrast. Radiation optimization: All CT scans at this facility use at least one of these dose optimization techniques: automated exposure control; mA and/or kV adjustment per patient size (includes targeted exams where dose is matched to clinical indication); or iterative reconstruction. Contrast material: OMNIPAQUE 350; Contrast volume: 100 ml; Contrast route: INTRAVENOUS (IV); COMPARISON: US transvaginal [id number] 01/29/2020 4:22 PM RADIATION DOSE METRICS: Total DLP (mGy-cm): 406.7 FINDINGS: Liver: Normal. No mass. Gallbladder and biliary ducts: Normal. No calcified stones. No ductal dilation. Pancreas: Normal. No ductal dilation. Spleen: Normal. No splenomegaly. Adrenal glands: Normal. No mass. Kidneys and ureters: Normal. No hydronephrosis. Stomach and bowel: Unremarkable. No obstruction. No mucosal thickening. Appendix: The appendix is visualized and is normal. Intraperitoneal space: Mild pelvic ascites. No pneumoperitoneum. Vasculature: Unremarkable. No abdominal aortic aneurysm. Lymph nodes: Unremarkable. No enlarged lymph nodes. Urinary bladder: Unremarkable as visualized. Reproductive: Unremarkable as visualized. Bones/joints: Unremarkable. No acute fracture. Soft tissues: Small fat containing umbilical hernia. CT/CT abdomen pelvis w con* [id number] IMPRESSION: 1. No acute findings. 2. Mild pelvic ascites, most likely physiologic.
[2023-11-01 17:07] LABS: Alanine Aminotransferase 14 U/L (0-33); Albumin Level 4.7 g/dL (3.5-5.2); Alkaline Phosphatase 55 U/L (35-105); Anion Gap 16.7 (5-19); Aspartate Amino Transferase 16 U/L (0-32); Blood Urea Nitrogen 8 mg/dL (6-20); Calcium 9.3 mg/dL (8.5-10.5); Carbon Dioxide 27 mmol/L (22-29); Chloride 99 mmol/L (98-107); Creatinine Clr Calc Pharmacy 154.5177; Globulin 2.6 g/dL (1.3-4.6); Glomerular Filtration Rate 152.9 mL/min (90-130); Glucose 92 mg/dL (65-115); Lipase 24 U/L (13-60); Osmolality Calculated 286 mOsm/kg (285-295); Potassium 3.7 mmol/L (3.5-5.1); Sodium 139 mmol/L (136-145); Total Bilirubin 0.5 mg/dL (0.15-1.2); Total Protein 7.3 g/dL (6.6-8.7)
[2023-11-01] MEDS: iohexol 350 mg/mL 500 mL Btl (per mL) IV (17:07)
== END 2023-11-01 17:56 | disposition home or self-care (01) ==
PROVIDERS: Physician Assistant; Emergency Provider Physician Assistant
DX: N83.209 Unspecified ovarian cyst, unspecified side (principal)
CPT/HCPCS: 36415; 74177; 80053; 81003; 83690; 84703; 85025; 99285; Q9967

== ENCOUNTER → 2024-05-04 10:07 | Outpatient (BNVA) | payer OTHER, SELFPAY | PROVIDERS: Referring Provider Nurse Practitioner Women's Health; Visit Provider Internal Medicine | DX: E28.2 Polycystic ovarian syndrome (principal); R73.03 Prediabetes | CPT/HCPCS: 36415; 83036; 84146 ==

== ENCOUNTER 2024-05-19 13:50 | Outpatient (CLI) | payer OTHER, SELFPAY ==
--- NOTE | 2024-05-19 13:45 | US_ITS ---
WS: [id number] US pelv w/transvag [id number] HISTORY: chronic pelvic pain COMPARISON: 01/28/2022 Uterus: 6.6 cm x 3.3 cm x 2.9 cm. Normal size anteverted uterus. No fibroid or mass. Endometrium: 0.6 cm. Normal size endometrium. Tiny amount of fluid in the endometrium towards the fundus. Right ovary: 3.5 cm x 2.5 cm x 3.2 cm. Normal size ovary. Multiple peripheral follicles. Follicles are of similar size in the periphery of the ovary. Normal vascularity. Left ovary: 3.9 cm x 2.4 cm x 3.4 cm. Normal size ovary with multiple small peripheral follicles of various but similar sizes. No mass. Normal vascularity. Small amount of physiologic free fluid in the cul-de-sac. US/US pelv w/transvag [id number] IMPRESSION: 1. Normal uterus and endometrium. 2. Suspect polycystic ovarian syndrome.
== END 2024-05-19 13:51 | disposition home or self-care (01) ==
PROVIDERS: PCP Nurse Practitioner Women's Health; Visit Provider Internal Medicine
DX: E28.2 Polycystic ovarian syndrome (principal); R93.89 Abnormal findings on diagnostic imaging of other specified body structures
CPT/HCPCS: 76830; 76856

== ENCOUNTER → 2024-07-20 11:38 | Outpatient (BNVA) | payer OTHER, SELFPAY | PROVIDERS: PCP Nurse Practitioner Women's Health; Visit Provider Obstetrics & Gynecology | DX: R10.2 Pelvic and perineal pain (principal) | CPT/HCPCS: 84702 ==

== ENCOUNTER 2024-07-28 07:42 | Day surgery (SDC) | payer OTHER, SELFPAY ==
[2024-07-28] VITALS (10 sets, daily range): BP systolic 94–112; BP diastolic 61–74; PULSE 72–97; RESP 16–18; TEMP 36.2–36.3; O2SAT 94–99; BMI 25.7
--- NOTE | 2024-07-28 00:59 | P.HP_ITS ---
Same Day Surgery H&P Indication for Procedure/HPI DATE OF PROCEDURE: July 28, 2024 CHIEF COMPLAINT/INDICATIONFOR SURGICAL PROCEDURE: painful periods PREOP DIAGNOSIS: dysmenorrhea PLANNED PROCEDURE: Operation Date: 07/28/24 09:15 Proposed Procedures p Laparoscopy Laparoscopy w/ Pelvic Biopsies [id number], R10.2(Not Applicable) - Russ Perry MD s possible fulguration of endometriosis(Not Applicable) - Russ Perry MD 23 y.o. G0 with history of severe dysmenorrhea Medications/Allergies* Home Medications ?Medication ?Instructions ?Recorded ?Confirmed ?Type No Known Home Medications 12/31/23 03/0 08/30 History Allergies/Adverse Reactions Allergy/AdvReac Type Severity Reaction Status Date / Time amoxicillin Allergy rash Verified 06/10/24 14:17 Penicillins Allergy hives Verified 06/10/24 14:17 Pertinent History/Comorbid Conditions* Medical History (Updated 05/04/24 @ 13:22 by Raz Gomez MD) Primary sleep disturbance Fibromyalgia Myalgia Fatigue Positive KWAME (antinuclear antibody) Proteinuria Immunization counseling Surgical History (Updated 09/02/19 @ 20:21 by Randy Rausch MD) No pertinent past surgical history Family History (Updated 01/22/20 @ 14:30 by Gay Alves RN) Diabetes Family/Other maternal great aunt and great uncles CAD (coronary artery disease) Father Hyperlipidemia Father Hypertension Father Denies family history of Rheumatoid arthritis Colon cancer Ovarian cancer Lupus Breast cancer Anesthesia complication Uterine cancer Thyroid disease Stroke Social History Smoking and tobacco/nicotine status: never used tobacco/nicotine Alcohol intake: never Substance/Drug Use: never Adopted: No Caregiver/support person: No Lives independently: No Household members: significant other service: No Current occupational status: employed Sexually active: Yes Do you think of yourself as: Straight/Heterosexual Current gender identity: Female Pertinent Exam Findings alert, oriented x 3, clear to auscultation bilaterally and regular rate & rhythm Recommendations Surgery/Procedure today Coding Level of Care Code Acute Code for Chg Fwd
[2024-07-28 08:01] LABS: OR HCG Qualitative Urine Negative (Negative)
[2024-07-28] MEDS: scopolamine 1 mg PATCH 1 PATCH TRANSDERMA (08:11)
[2024-07-28] MEDS: sodium chloride 0.9% 1,000 ML 30 ML IV (08:12)
--- NOTE | 2024-07-28 08:49 | ANES.PREANE2 ---
Pre-Anesthetic Assessment Height/Weight: Height 5 ft 3 in Weight 145 lb Temp Pulse Resp BP Pulse Ox O2 Del Method 97.3 F L 76 16 100/74 99 Room Air 07/28/24 08:01 07/28/24 08:01 07/28/24 08:01 07/28/24 08:01 07/28/24 08:01 07/28/24 08:01 Preop Diagnosis: severe dysmenorrhea Operation Date: 07/28/24 09:15 Proposed Procedures p Laparoscopy Laparoscopy w/ Pelvic Biopsies 80060, R10.2(Not Applicable) - Russ Perry MD s possible fulguration of endometriosis(Not Applicable) - Russ Perry MD Was Beta Kami taken within 24 hours: N/A Was Clonidine taken within 24 hours: N/A Last intake: Intake Last Liquid Date 07/27/24 Last Liquid Time 19:00 Last Solid Date 07/27/24 Last Solid Time 21:15 Social No alcohol and No tobacco Quit smoking 1 year ago Exam alert, oriented x 3, clear to auscultation bilaterally and regular rate & rhythm Airway Submandibular: within normal limits Cervical ROM: within normal limits Mallampati: Class I Dentition: full Anesthetic Plan ASA status: 1 Anesthesia: General Other: No prior issues with anesthesia NPO since yesterday evening Patient denies any pulmonary cardiac issues, quit smoking 1 year ago Patient states that she is very sensitive to medications Fibromyalgia noted hCG negative METs greater than 4 Plan for GETA Medications/Allergies Home Medications ?Medication ?Instructions ?Recorded ?Confirmed ?Last Taken ?Type No Known Home Medications 12/31/23 07/28/24 Unknown History Allergies Allergy/AdvReac Type Severity Reaction Status Date / Time amoxicillin Allergy rash Verified 06/10/24 14:17 Penicillins Allergy hives Verified 06/10/24 14:17 Current Medications Generic Name Dose Route Start Last Admin Trade Name Freq PRN Reason Stop Dose Admin Sodium Chloride 1,000 mls @ 30 mls/hr 07/28/24 08:00 07/28/24 08:12 Sodium Chloride 0.9% IV 07/29/24 07:59 30 mls/hr .Q24H LILIANA Administration PFSH Anesthesia Medical History Primary sleep disturbance Fibromyalgia Myalgia Fatigue Positive KWAME (antinuclear antibody) Proteinuria Immunization counseling Surgical History No pertinent past surgical history Family History Father CAD (coronary artery disease) Hyperlipidemia Hypertension Family/Other Diabetes maternal great aunt and great uncles Denies family history of Rheumatoid arthritis Colon cancer Ovarian cancer Lupus Breast cancer Anesthesia complication Uterine cancer Thyroid disease Stroke Social History Smoking and tobacco/nicotine status: never used tobacco/nicotine Alcohol intake: never Substance/Drug Use: never Adopted: No Caregiver/support person: No Lives independently: No Household members: significant other service: No Current occupational status: employed Sexually active: Yes Do you think of yourself as: Straight/Heterosexual Current gender identity: Female Data Anesthesia Cardiac Studies: No Data to Display
--- NOTE | 2024-07-28 09:03 | W.PM.OPSUD ---
Surgery/Procedure H&P Update DATE OF PROCEDURE: July 28, 2024 DATE H&P PERFORMED: 07/28/24 H&P UPDATE INFORMATION: I have reviewed H&P completed within last 30 days, I have examined patient prior to procedure and No changes to prior documentation PREOP DIAGNOSIS: severe dysmenorrhea PLANNED PROCEDURE: Operation Date: 07/28/24 09:15 Proposed Procedures p Laparoscopy Laparoscopy w/ Pelvic Biopsies [id number], R10.2(Not Applicable) - Russ Perry MD s possible fulguration of endometriosis(Not Applicable) - Russ Perry MD
[2024-07-28] MEDS: oxyCODONE-APAP 5-325 mg Tablet 1 TAB PO (11:05)
--- NOTE | 2024-07-28 11:45 | PM.OP ---
Operative Report Date of procedure: July 28, 2024 Pre-op diagnosis: Chronic severe dysmenorrhea Post-op diagnosis: same Post-op findings: Normal pelvis No evidence of endometriosis Procedure done: laparoscopy Implants: none Specimens removed/disposition: none Surgeon: Russ Perry MD Anesthesia: General Estimated blood loss (mL): 0 Complications: none Findings: Normal pelvis No evidence of endometriosis Condition: stable Disposition: PACU Brief History: 23 y.o. with chronic severe dysmenorrhea Procedure: Informed consent obtained. The patient was taken to the OR and placed supine on the table. General endotracheal anesthesia was given. The abdomen and perineum were prepped and draped in usual fashion. A 5 mm subumbilical skin incision was made. A laparoscopic trocar with sheath was inserted into the peritoneal cavity under direct vision with the laparoscope. Pneumoperitoneum was achieved. Two separate 5 mm incisions were made in the right and left mid-abdominal quadrants under direct visualization to accommodate additional trocars and sheaths. The pelvis was explored with the laparoscope. Normal uterus and ovaries were seen. Normal fallopian tubes were seen. No abnormalities were seen in the utero-ovarian ligaments, broad ligaments, anterior and posterior cul-de-sacs and pelvic side-wing. No white or red lesions, fenestrations, or vascular abnormalities were seen. There were no stellate lesions or fibrosis/adhesions seen. No bleeding was seen The liver edge was visualized and was normal. The remainder of the pelvis was again examined and seen to be normal. All instruments were then removed from the abdominal cavity after the pneumoperitoneum was allowed to escape. The skin incisions were closed with 4-O monocryl. Dermabond was applied. The patient was then awakened and taken to the recovery room in good condition. Postop condition stable. EBL 0 cc. There were no complications.
--- NOTE | 2024-07-28 12:19 | ANE.PACU2 ---
Inpatient post-anesthesia follow up: Airway intact: Yes Vital signs: Temperature 97.2 F Pulse Rate 72 Respiratory Rate 16 Blood Pressure 100/62 Pulse Oximetry 99 Oxygen Delivery Me thod Room Air Oxygen Flow Rate 8 Fraction of Inspir ed Oxygen Hydration adequate: Yes Nausea and vomiting: No Pain level: 1 Mental status: Baseline
== END 2024-07-28 12:19 | disposition home or self-care (01) ==
PROVIDERS: Visit Provider Obstetrics & Gynecology
PROC: (CPT 49320; principal; 2024-07-28 09:15)
DX: N94.6 Dysmenorrhea, unspecified (principal); Z87.891 Personal history of nicotine dependence; Z88.0 Allergy status to penicillin
CPT/HCPCS: 49320; 81025; J0131; J0330; J1100; J1200; J1885; J2250; J2405; J2704; J3010; J3490; J7030; J9999

== ENCOUNTER 2024-10-20 10:02 | Outpatient (CLI) | payer OTHER, SELFPAY ==
[2024-10-20 11:11] LABS: Estmated Average Glucose 108; Hemoglobin A1C 5.4 % (4.0-6.0)
== END 2024-10-20 10:03 | disposition home or self-care (01) ==
PROVIDERS: Visit Provider Internal Medicine
DX: E28.2 Polycystic ovarian syndrome (principal); R73.03 Prediabetes
CPT/HCPCS: 36415; 83036

== ENCOUNTER 2025-01-14 08:31 | Outpatient (CLI) | payer OTHER, SELFPAY ==
[2025-01-14 09:49] LABS: Estmated Average Glucose 103; Hemoglobin A1C 5.2 % (4.0-6.0)
== END 2025-01-14 08:32 | disposition home or self-care (01) ==
PROVIDERS: Visit Provider Internal Medicine
DX: R10.20 Pelvic and perineal pain unspecified side (principal); R73.03 Prediabetes; E28.2 Polycystic ovarian syndrome
CPT/HCPCS: 36415; 83036